=== PATIENT | male | born 1990 | race Caucasian/White ===

== ENCOUNTER 2020-07-22 21:14 | Emergency (ER) | payer OTHER, SELFPAY ==
[2020-07-22 21:26] VITALS: BP 151/100; PULSE 120; RESP 26; TEMP 36.9; O2SAT 96
[2020-07-22 22:10] VITALS: BP 144/88; PULSE 106; PULSE 107; RESP 20; O2SAT 96
[2020-07-22] MEDS: MORPHINE SULFATE (*CRX) 4 MG/ML INJ IV PUSH (22:13)
[2020-07-22] MEDS: SODIUM CHLORIDE 0.9% IV 1,000 ML 999 ML IV CONT (22:13)
[2020-07-22] MEDS: CLINDAMYCIN 600 MG/NS 50 ML 600 MG/50 ML PIGGYBACK 100 MG IVPB (22:13)
[2020-07-22] MEDS: LIDOCAINE HCL 1% LOCAL INJ 20 ML VIAL 5 ML INFILTRATE (22:13)
--- NOTE | 2020-07-22 22:23 | ED.GENADULT ---
HPI - General Adult General Chief complaint: Unspecified Stated complaint: Boils below my waist Time Seen by Provider: 07/22/20 21:28 History of Present Illness HPI narrative: Patient 29-year-old gentleman who presents the emergency department with chief complaint of suprapubic abscess. Patient reports he is a type II diabetic and noticed that he started getting some redness and swelling in his suprapubic region. Patient states that is the location of where his pants and belt rub against his abdomen. The patient states that has had multiple prior abscesses in the past that usually drain on their own patient states that he had one area that opened up and drained purulent material but now still has an area that feels extremely full and is tender to touch. Patient reports surrounding erythema. Patient denies crepitance to the area denies involvement of his genitalia. Related Data Home Medications Medication Instructions Recorded Confirmed atorvastatin 07/22/20 empagliflozin [Jardiance] mg 07/22/20 07/22/20 metformin mg PO 07/22/20 semaglutide [Ozempic] mg SUBCUT 07/22/20 sitagliptin-metformin [Janumet XR] tablet PO 07/22/20 Allergies Allergy/AdvReac Type Severity Reaction Status Date / Time No Known Allergies Allergy Verified 07/22/20 22:11 Review of Systems Review of Systems: Narrative: A 10 system review of systems was completed on the patient and is negative except for what is stated in the HPI. Nursing and ancillary documentation was reviewed. PMFSH Comments Past medical history significant for type 2 diabetes, multiple skin abscesses Social history patient is a senior mechanical technician Exam Narrative: Exam Narrative: GENERAL: Well-appearing, well-nourished, and in no acute distress. HEAD: Normocephalic, atraumatic. EYES: PERRLA and EOMI. ENT: Nares clear, no rhinorrhea or epistaxis. Mucous membranes moist. NECK: Supple. CHEST: Clear to auscultation. No respiratory distress. HEART: Regular rate and rhythm. No murmur heard. Normal peripheral pulses. ABDOMEN: Soft, nontender, nondistended, normal active bowel sounds. EXTREMITIES: Normal range of motion. No edema. SKIN: Warm, dry, there is erythema in the suprapubic region there is an area of fluctuance that is tender to palpation. NEURO: No focal deficits. Alert and oriented x3. PSYCH: Normal mood and affect. Course Vital Signs Vital signs: Vital Signs Temperature 36.9 C 07/22/20 21:26 Pulse Rate 120 H 07/22/20 21:26 Respiratory Rate 26 H 07/22/20 21:26 Blood Pressure 151/100 H 07/22/20 21:26 Pulse Oximetry 96 07/22/20 21:26 Temperature 36.9 C 07/22/20 21:26 Pulse Rate 107 H 07/22/20 22:10 Respiratory Rate 07/22/20 22:10 Blood Pressure 144/88 H 07/22/20 22:10 Pulse Oximetry 96 07/22/20 22:10 Procedures Abscess I/D abdomen: Date of Incision: 07/22/20 Time of Incision: 22:25 Local Anesthetic: lidocaine 1% Amount of anesthesia used (mL): 8 Technique: incised with #11 blade Amount of fluid expressed (mL): 15 Packing used?: plain I&D Results: Pus and Blood Medical Decision Making Vital Signs Vital Signs: Vital Signs Temperature 36.9 C 07/22/20 21:26 Pulse Rate 120 H 07/22/20 21:26 Respiratory Rate 26 H 07/22/20 21:26 Blood Pressure 151/100 H 07/22/20 21:26 Pulse Oximetry 96 07/22/20 21:26 Temperature 36.9 C 07/22/20 21:26 Pulse Rate 107 H 07/22/20 22:10 Respiratory Rate 07/22/20 22:10 Blood Pressure 144/88 H 07/22/20 22:10 Pulse Oximetry 96 07/22/20 22:10 Lab Data Result diagrams: 07/22/20 22:25 07/22/20 22:25 Labs: Lab Results 07/22/20 07/22/20 07/22/20 Range/Units 22:25 22:25 22:25 WBC 8.7 (4.5-10.0) K/mm3 RBC 4.92 (4.6-6.20) M/mm3 Hgb 14.4 (14.0-18.0) g/dL Hct 41.2 L (42.0-52.0) % MCV 83.7 (80-100) fl MCH 29.3 (26-34) pg MCHC 35.0 (32-36) g/dl RDW
[2020-07-22 22:35] LABS: Basophils Percent Auto 0.2 % (0.2-1.2); Eosinophils Absolute Auto 0.1 K/mm3 (0-0.3); Eosinophils Percent Auto 1.5 % (0-4.4); Hematocrit 41.2 % (42.0-52.0); Hemoglobin 14.4 g/dL (14.0-18.0); Immature Granulocyte Absolute 0.04 K/mm3 (0.00-0.031); Immature Granulocyte Percent A 0.5 % (0-0.5); Lymphocytes Absolute Auto 1.66 K/mm3 (0.9-3.2); Mean Corpuscular Hemoglobin 29.3 pg (26-34); Mean Corpuscular Volume 83.7 fl (80-100); Mean Platelet Volume 8.8 fl (7.4-10.4); Monocytes Percent Auto 11.5 % (2.6-8.5); Neutrophils Absolute Auto 5.9 K/mm3 (1.3-6.7); Neutrophils Percent Auto 67.3 % (45.5-73.1); Platelet Count Result 325 k/mm3 (150-375); Red Blood Count 4.92 M/mm3 (4.6-6.20); Red Cell Distribution Width 12.5 % (11.5-14.5); White Blood Count 8.7 K/mm3 (4.5-10.0)
[2020-07-22 22:47] LABS: Alanine Aminotransferase 32 U/L (4-50); Albumin Level 3.9 g/dL (3.5-5.1); Alkaline Phosphatase 92 U/L (38-126); Anion Gap 11 mmol/L (8-16); Aspartate Amino Transferase 28 U/L (17-59); Bilirubin,Total 0.8 mg/dL (0.2-1.3); Blood Urea Nitrogen 14 mg/dL (9-20); Calcium 8.9 mg/dL (8.4-10.2); Carbon Dioxide 22 mmol/L (22-30); Chloride 102 mmol/L (98-107); Estimated CRCL calculation 187 ml/min; Estimated Glomerular Filt Rate > 60; Glucose 371 mg/dL (75-110); Potassium 3.8 mmol/L (3.4-5.0); Sodium 135 mmol/L (137-145)
[2020-07-22 23:40] VITALS: BP 129/80; PULSE 104; RESP 13; O2SAT 96
== END 2020-07-22 23:40 | disposition home or self-care (01) ==
PROVIDERS: Emergency Provider Emergency Medicine; Family Provider Internal Medicine; PCP Internal Medicine
DX: L02.211 Cutaneous abscess of abdominal wall (principal); E11.65 Type 2 diabetes mellitus with hyperglycemia; Z79.84 Long term (current) use of oral hypoglycemic drugs
CPT/HCPCS: 10060; 36415; 80053; 83605; 85025; 87040; 96374; 96375; 99284; J2270; J7030

== ENCOUNTER 2024-08-10 07:00 | Emergency (ER) | payer OTHER, SELFPAY ==
--- NOTE | ~2024-08-10 | XR_ITS ---
AP view of the pelvis and AP and lateral views of the left hip Clinical history: Pain Findings: No acute fracture or dislocation is seen. Osseous alignment is anatomic. Bilateral hip and SI joint spaces are preserved. Soft tissues are unremarkable. Impression: No significant abnormality is seen. Reviewed, dictated and finalized at [facility]. DEVELOPER Impression: No significant abnormality is seen.
--- OUTSIDE RECORDS SUMMARY | 2024-08-10 07:02 | XMS_ITS | Clinical Summary ---
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 at [address] [id number] Pain 07/10/2024 2:45 PM APPLIANCE COUNSELOR Ancillary Procedure [facility] at [address] [id number] Pain from Last 3 Months Social History Tobacco Use Types Packs/Day Years Used Date Smoking Tobacco: Never Sex and Gender Information Value Date Recorded Sex Assigned at Not on file Legal Sex Male 3:50 AM APPLIANCE COUNSELOR Gender Identity Not on file Sexual Orientation Not on file Obstetrics History Plan of Treatment Health Maintenance Due Date Last Done Comments Depression Screening 1988 Hepatitis C Screening 1988 DTaP/Tdap/Td Vaccine (1 - Tdap) 11/26/1999 Varicella Vaccines (1 of 2 - 13+ 2-dose series) 2001 Hepatitis B Screening 2006 Regular Well Visit/Exam 18-64 2006 Covid-19 Vaccine (2 - 2023-2 5 season) 2024 07/09/2021 Influenza Vaccine (#1) 2024 HPV Vaccines Aged Out No longer eligi ble based on patient's age to complete this topic Pneumococcal vaccine <65 Aged Out No longer eligible based on patient's age to complete this topic Procedures Procedure Name Priority Date/Time Associated Diagnosis Comments XR SPINE CERVICAL 6 OR MORE VIEWS Schedule Routine, Read Routine (OP Routine) 07/10/2024 2:29 PM APPLIANCE COUNSELOR Pain XR HAND RIGHT 3 OR MORE VIEWS Schedule Routine, Read Routine (OP Routine) 07/10/2024 2:29 PM APPLIANCE COUNSELOR Pain from Last 3 Months Results * XR Spine Cervical 6 or More Views (07/10/2024 2:29 PM APPLIANCE COUNSELOR) Anatomical Region Laterality Modality Spine N/A Digital Radiogra phy 07/11/2024 1:07 PM APPLIANCE COUNSELOR Narrative 07/11/2024 1:13 PM APPLIANCE COUNSELOR EXAM DESCRIPTION: XR SPINE CERVICAL 6 OR MORE VIEWS REASON FOR STUDY: neck pain Pt complains of numbness in both arms, mostly at night, intermittently for about a year. No known injury. No prior surgery to the cervical spine. Smashed hand last weekend, pain to the 2nd digit TECHNIQUE: 7 radiographic view(s) of the cervical spine. COMPARISON: None FINDINGS: ALIGNMENT: There is straightening of the cervical lordosis in the lateral projection. There is no evidence of instability in flexion or extension. VERTEBRAE: Vertebral body heights are maintained. Facets are normally aligned. There is no significant osseous neural foraminal narrowing on the right. There is some narrowing at C5-6 on the left. This can be further evaluated with MRI. DISCS: Disc height well-maintained. SOFT TISSUES: Prevertebral soft tissue structures are within normal limits. IMPRESSION: 1. No acute osseous abnormality in the cervical spine. There is some straightening of the cervical lordosis in the lateral projection. 2. Osseous neural foraminal narrowing at C 5-6 on the left. MRI can be utilized for further evaluation. THIS IS AN ELECTRONICALLY VERIFIED FINAL REPORT 07/11/2024 1:13 PM - Electronically signed by Luh Stevens M.D. TW T: Report ID: [id number] Reading Location: [id number] Procedure Note Luh Stevens MD - 07/11/2024 EXAM DESCRIPTION: XR SPINE CERVICAL 6 OR MORE VIEWS REASON FOR STUDY: neck pain Pt complains of numbness in both arms, mostly at night, intermittently for about a year. No known injury. No prior surgery to the cervical spine.Smashed hand last weekend, pain to the 2nd digit TECHNIQUE: 7 radiographic view(s) of the cervical spine. COMPARISON: None FINDINGS: ALIGNMENT: There is straightening of the cervical lordosis inthe lateral projection. There is no evidence of instability in flexion or extension. VERTEBRAE: Vertebral body heights are maintained. Facets are normally aligned. There is no significant osseous neural foraminal narrowing onthe right. There is some narrowing at C5-6 on the left. This can be further evaluated with MRI. DISCS: Disc height well-maintained. SOFT TISSUES: Prevertebral soft tissue structures are within normallimits. IMPRESSION: 1. No acute osseous abnormality in the cervical spine. There is some straightening of the cervical lordosis in the lateral projection. 2. Osseous neural foraminal narrowing at C 5-6 on the left. MRI can be utilized for further evaluation. THIS IS AN ELECTRONICALLY VERIFIED FINAL REPORT 07/11/2024 1:13 PM - Electronically signed by Luh Stevens M.D. TW T: Report ID: [id number] Reading Location: [id number] [facility] DC IMG XR PROCEDURES Final Result * XR Hand Right 3 or More Views (07/10/2024 2:29 PM APPLIANCE COUNSELOR) Anatomical Region Laterality Modality Upper Extremities, Hand Right Digital Radiography 07/12/2024 8:41 AM APPLIANCE COUNSELOR Narrative 07/12/2024 8:59 AM APPLIANCE COUNSELOR EXAM DESCRIPTION: XR HAND RIGHT 3 OR MORE VIEWS REASON FOR STUDY: pain Pt complains of numbness in both arms, mostly at night, intermittently for about a year. No known injury. No prior surgery to the cervical spine. Smashed hand last weekend, pain to the 2nd digit TECHNIQUE: 3 radiographic view(s) of the right hand . COMPARISON: None FINDINGS: BONES/JOINTS: There is no acute fracture, malalignment or osseous abnormality. The joint spaces are normal. SOFT TISSUES: Within normal limits. IMPRESSION: No acute osseous abnormality. THIS IS AN ELECTRONICALLY VERIFIED FINAL REPORT 07/12/2024 8:59 AM - Electronically signed by John Paul DAVIS T: Report ID: [id number] Reading Location: [id number] Procedure Note John Paul Art MD - 07/12/2024 EXAM DESCRIPTION: XR HAND RIGHT 3 OR MORE VIEWS REASON FOR STUDY: pain Pt complains of numbness in both arms, mostly at night, intermittently for about a year. No known injury. No prior surgery to the cervical spine.Smashed hand last weekend, pain to the 2nd digit TECHNIQUE: 3 radiographic view(s) of the right hand . COMPARISON: None FINDINGS: BONES/JOINTS: There is no acute fracture, malalignment orosseous abnormality. The joint spaces are normal. SOFT TISSUES: Within normal limits. IMPRESSION: No acute osseous abnormality. THIS IS AN ELECTRONICALLY VERIFIED FINAL REPORT 07/12/2024 8:59 AM - Electronically signed by John Paul DAVIS T: Report ID: [id number] Reading Location: [place] [address] [facility] Kendall [facility] IMG XR PROCEDURES Final Result from Last 3 Months [facility] [place] [facility] Care Teams Specialty Therapist Relationship Specialty Start Date End Date Tania Hale MD PCP - General Internal Medicine 11/23/18
--- OUTSIDE RECORDS SUMMARY | 2024-08-10 07:02 | XMS_ITS | Continuity of Care Document ---
Author Organization [facility] [facility] [place] Address [address] [place] [address] Phone Care Team Providers Care Lab Engineer Name Role Phone Cipriano Black MD Unavailable Unavailable Allergies, Adverse Reactions, Alerts Substance Reaction Status Criticality No Known Drug Allergies Active No I nformation Medications Medication Instructions Dosage Effective Dates (start - stop) Status Comments pantoprazole 40 mg tablet,delayed release Take 1 tablet by mouth once daily - Active atorvastatin 40 mg tablet Take 1 tablet by mouth once daily - Active Basaglar KwikPen U-100 Insulin 100 unit/mL (3 mL) subcutaneous inject 26u under the skin once daily before bedtime - Active metFORMIN HCl ER 500 MG Oral Tablet Extended Release 24 Hour TAKE 2 TABLETS BY MOUTH ONCE DAILY WITH EVENING MEAL - Active Jardiance 25 mg tablet TAKE 1 TABLET BY MOUTH ONCE DAILY IN THE MORNING - Active potassium gluconate 550 mg (90 mg) tablet 1 tablet daily - Active Fenofibrate 145 MG Oral Tablet Take 1 tablet by mouth once daily - Active BD PEN NEEDLE/YUNIOR [id number] MIS USE TO INJECT INSULIN DIRECTED - Active Cinnamon 500 mg capsule take 2 capsules by mouth once daily - Active Procedures Procedure Date Pt inelig neg scrn depres OFFICE [id number] BODY MASS INDEX DOCD SYST BP LT 130 MM HG DIAST BP >= 90 MM HG ROUTINE VENIPUNCTURE [place] BASIC METABOLIC PANEL(BMP) HEMOGLOBIN A1C HGA1C, GLYCO Pt inelig neg scrn depres PREVENTATIVE-EST: 18-39 BODY MASS INDEX DOCD SYST BP GE 130 - 139MM HG DIAST BP 80-89 MM HG CBC, INC PLATELETS AND DIFFERENTIAL COMPREHEN METABOLIC PANEL CMP HEMOGLOBIN A1C HGA1C, GLYCO LIPID PANEL MICROALBUMIN, QN (URINE) CREATININE, (U-R) ROUTINE VENIPUNCTURE IL Pt inelig neg scrn depres OFFICE [id number] BODY MASS INDEX DOCD SYST BP GE 130 - 139MM HG DIAST BP 80-89 MM HG ROUTINE VENIPUNCTURE IL HEMOGLOBIN A1C HGA1C, GLYCO TRIGLYCERIDES CBC, INC PLATELETS AND DIFFERENTIAL COMPREHEN METABOLIC PANEL CMP HEMOGLOBIN A1C HGA1C, GLYCO LIPID PANEL MICROALBUMIN, QN (URINE) CREATININE, (U-R) LDL-CHOLESTEROL, DIRECT Pt inelig neg scrn depres PREVENTATIVE-EST: -39 BODY MASS INDEX DOCD SYST BP LT 130 MM HG DIAST BP 80-89 MM HG ROUTINE VENIPUNCTURE [place] BASIC METABOLIC PANEL(BMP) HEMOGLOBIN A1C HGA1C, GLYCO Pt inelig neg scrn depres OFFICE [id number] BODY MASS INDEX DOCD SYST BP >= 140 MM HG6 IT DIAST BP 80-89 MM HG ROUTINE VENIPUNCTURE WA Pt inelig neg scrn depres PREVENTATIVE-EST: 18-39 BODY MASS INDEX DOCD SYST BP LT 130 MM HG DIAST BP < 80 MM HG CBC, INC PLATELETS AND DIFFERENTIAL COMPREHEN METABOLIC PANEL CMP HEMOGLOBIN A1C HGA1C, GLYCO LIPID PANEL MICROALBUMIN, QN (URINE) CREATININE, (U-R) ROUTINE VENIPUNCTURE Pt inelig neg scrn depres OFFICE [id number] BODY MASS INDEX DOCD SYST BP LT 130 MM HG DIAST BP < 80 MM HG COMPREHEN METABOLIC PANEL [facility] 2 HEMOGLOBIN A1C HGA1C, GLYCO MICROALBUMIN, QN (URINE) CREATININE, (U-R) ROUTINE VENIPUNCTURE Pt inelig neg scrn deprjackson PREVENTATIVE-EST: 18-39 BODY MASS INDEX DOCD SYST BP GE 130 - 139MM HG DIAST BP 80-89 MM HG CBC, INC PLATELETS AND DIFFERENTIAL COMPREHEN METABOLIC PANEL [facility] 1 HEMOGLOBIN A1C HGA1C, GLYCO LIPID PANEL ROUTINE VENIPUNCTURE OFFICE [id number] BODY MASS INDEX DOCD SYST BP >= 140 MM HG6 IT DIAST BP 80-89 MM HG Pt inelig neg scrn depres OFFICE [id number] BODY MASS INDEX DOCD SYST BP GE 130 - 139MM HG DIAST BP 80-89 MM HG BASIC METABOLIC PANEL(BMP) HEMOGLOBIN A1C HGA1C, GLYCO ROUTINE VENIPUNCTURE Pt inelig neg scrn depres PREVENTATIVE-EST: 18-39 BODY MASS INDEX DOCD SYST BP GE 130 - 139MM HG DIAST BP < 80 MM HG MICROALBUMIN, QN (URINE) CREATININE, (U-R) CBC, INC PLATELETS AND DIFFERENTIAL COMPREHEN METABOLIC PANEL CMP HEMOGLOBIN A1C HGA1C, GLYCO LIPID PANEL ROUTINE VENIPUNCTURE Pt inelig neg manolon depres OFFICE [id number] BODY MASS INDEX DOCD SYST BP GE 130 - 139MM HG DIAST BP < 80 MM HG BASIC METABOLIC PANEL(BMP) HEMOGLOBIN A1C HGA1C, GLYCO ROUTINE VENIPUNCTURE OFFICE [id number] Pt inelig neg manolon depres PREVENTATIVE-EST: 18-39 BODY MASS INDEX DOCD SYST BP LT 130 MM HG DIAST BP 80-89 MM HG CBC, INC PLATELETS AND DIFFERENTIAL COMPREHEN METABOLIC PANEL CMP 9 HEMOGLOBIN A1C HGA1C, GLYCO LIPID PANEL MICROALBUMIN, QN (URINE) CREATININE, (U-R) ROUTINE VENIPUNCTURE HEMOGLOBIN A1C HGA1C, GLYCO ROUTINE VENIPUNCTURE BASIC METABOLIC PANEL(BMP) HEMOGLOBIN A1C HGA1C, GLYCO ROUTINE VENIPUNCTURE BASIC METABOLIC PANEL(BMP) HEMOGLOBIN A1C HGA1C, GLYCO ROUTINE VENIPUNCTURE OFFICE [id number] BODY MASS INDEX DOCD SYST BP GE 130 - 139MM HG DIAST BP >= 90 MM HG BASIC METABOLIC PANEL(BMP) HEMOGLOBIN A1C HGA1C, GLYCO ROUTINE VENIPUNCTURE Advance Directives Directive Yes / No Effective Date File Name Life Support Not Answered N/A N/A Intubation Not Answered N/A N/A Antibiotics Not Answered N/A N/A IV Fluid Support Not Answered N/A N/A Tube Feed Not Answered N/A N/A Other Directive N/A N/A WARNING:The information contained in this section is historical and is provided for information only and does not constitute a legal document or any assurance that the information is still accurate. Please verify the information with the park of the legal document before using it for clinical purposes. Encounters Encounter Description Practice Location Reason(s) For Visit Diagnoses Date Provider Providers Copied on Encounter [facility] [place], [address], [place], [place], [address] , tel: [phone] [facility] No Information 5 English Cota. Mis[place], [address] , [place]. tel: [phone] [facility] [place], [address], [place], [place], [address] , [place] tel: [phone] [facility] [place] No Information 5 English Cota. [address] [place], [address] , [place]. tel: [phone] [facility] [place], [address], [place], [place], [address] , [place] tel: [phone] [facility] [place] No Information 5 English Cota. [address] [place], [place], [address] , [place]. tel: [phone] OFFICE [id number]-ZXS-LT TAILED [facility] [place], [address], [place], [place], [address] , tel: [phone] [facility] preventive exam (chief complaint)ch ronic conditions (chief complaint)Ch ronic Conditions (chief complaint) Routine medical examGERD without esophagitisType 2 diabetes mellitus with hyperglycemia, with long-term current use of insulinHyperlipid emia, unspecified hyperlipidemia typeBody mass index [BMI] 38.0-38.9, adult 4 Bains Steffanie. [address], [address] , [place]. tel: [phone] Referring Provider: [place], [address] . tel:[phone] [facility], [address], [place], [place], [address] , [place] tel: [phone] [facility] HTN, goal below 130/80Controlled type 2 diabetes mellitus with hyperglycemia, with long-term current use of insulinLong term (current) use of insulin 4 English Cota. Mishel [place], [address] , [place]. tel: [phone] Referring Provider: [place], [address] . tel:[phone] [facility], [address], [place], [place], [address] , tel: [phone] [facility] [place] [facility] No Information 4 Whit Elizabeth. [address], [address] , [place]. tel: [phone] Referring Provider: [place], [address] . tel:[phone] [facility], [address], [place], [place], [address] , [place] tel: [phone] [facility] No Information 4 English Cota. Mishel [place], [address] , [place]. tel:[phone] PREVENTATIVE -EST: 18-39 [facility], [address], [place], [place], [address] , tel: [phone] [facility] Px (chief complaint) Body mass index [BMI] 37.0-37.9, adultRoutine medical examType 2 diabetes mellitus with hyperglycemia, with long-term current use of insulinGERD without esophagitis 4 English Cota. [address] [place], [address] , [place]. tel: [phone] Referring Provider: Cipriano Black, [place], [address] . tel:[phone] [facility], [address], [place], [place], [address] , tel: [phone] [facility] [place] [facility] No Information 4 Whit Elizabeth. [address] [place] [address], [address] , [place]. tel: [phone] Referring Provider: [place], [address] . tel:[phone] [facility], [address], [place], [place], [address] , [place] tel: [phone] [facility] Routine medical examType 2 diabetes mellitus with hyperglycemia, with long-term current use of insulinLong term (current) use of insulinMixed hyperlipidemiaHTN , goal below 130/80 4 English Cota. Mishel [place], [address] , [place]. tel:[phone] Referring Provider: [place], [address] . tel:[phone] [facility], [address], [place], [place], [address] , tel: [phone] [facility] No Information 4 English Cota. Mishel [place], [address] , [place]. tel: [phone] OFFICE [id number]-UPV-PM PANDED [facility], [address], [place], [place], [address] , tel: [phone] [facility] chroniuc conditions (chief complaint) GERD without esophagitisType 2 diabetes mellitus with hyperglycemia, with long-term current use of insulinBody mass index [BMI] 37.0-37.9, adult 3 English Cota. [address] [place], [place], [address] , [place]. tel: [phone] Referring Provider: Cipriano Black, [place], [address] . tel:[phone] [facility] [place], [address], [place], [place], [address] , tel: [phone] [facility] Type 2 diabetes mellitus with hyperglycemia, with long-term current use of insulinLong term (current) use of insulinMixed hyperlipidemia 3 English Cota. [address] [place], [place], [address] , [place]. tel: [phone] Referring Provider: [place], [address] . tel:[phone] [employer], [address], [place], [place], [address] , tel: [phone] [employer] [facility] Outpatient Services No Information 3 Whit Serrano [address] [place] [address], [id number] , [place]. tel: [phone] Referring Provider: [place], [address] . tel:[phone] [employer], [address], [place], [place], [address] , tel: [phone] [employer] [facility] Encounter for general adult medical examination without abnormal findings 3 Whit Serrano [address], [address] , [place]. tel:[phone] Referring Provider: Cipriano Black, [place], [address] . tel:[phone] PREVENTATIVE -EST: 18-39 [facility] [place], [address], [place], [place], [address] , tel:[phone] [facility] px (chief complaint) Routine health maintenanceType 2 diabetes mellitus with hyperglycemia, with long-term current use of insulinGERD without esophagitisHTN, goal below 130/80Body mass index [BMI] 36.0-36.9, adult Sep-2 3 English Cota. [address] [place], [place], [address] , [place]. tel:[phone] Referring Provider: Cipriano Black, [place], [address] . tel:[phone] [facility], [address], [place], [place], [address] , [place] tel:[phone] [facility] No Information Nov-2 3 Spenser Campbell. [address] [place], [place], [address] , [place]. [phone] [facility], [address], [place], [place], [address] , [place] tel:[phone] [facility] [place] [facility] No Information Aug-0 3 Whitdean Gonsalezn. [address] [facility], [address] [address], [place], [place], [address] , [place]. tel:[phone] Referring Provider: Cipriano Black, [place], [address] . tel:[phone] OFFICE SGQCF-JHN-PG PANDED [facility], [address], [place], [place], [address] , [place] tel:[phone] [facility] diabetes (chief complaint) Body mass index [BMI] 39.0-39.9, adultType 2 diabetes mellitus with hyperglycemia, with long-term current use of insulin Aug-0 3 English Cota. [address] [place], [place], [address] , . tel:[phone] Referring Provider: [place], [address] . tel:[phone] PREVENTATIVE -EST: 18-39 [facility], [address], [place], [place], [address] , tel: [phone] [place] preventive exam (chief complaint)Ch ronic Conditions (chief complaint) Type 2 diabetes mellitus with hyperglycemia, with long-term current use of insulinMixed hyperlipidemiaGER D without esophagitisLong term (current) use of insulinHTN, goal below 130/80Morbid (severe) obesity due to excess caloriesRoutine health maintenanceBody mass index [BMI] 37.0-37.9, adult Apr- 2 Bains Steffanie. [address], [place], [address] , . tel: [phone] Referring Provider: [place], [address] . tel:[phone] OFFICE KEUAN-SKW-QG TAILED [facility], [address], [place], [place], [address] , tel: [phone] [place] Chronic Conditions (chief complaint) Type 2 diabetes mellitus with hyperglycemia, with long-term current use of insulinGERD without esophagitisLong term (current) use of insulinMixed hyperlipidemiaHTN , goal below 130/80Body mass index [BMI] 37.0-37.9, adultElevated liver enzymesEye exam, routine 2 Herson Valiente. [address] [place], [place], [address] , [place]. tel: [phone] Referring Provider: [place], [address] . tel:[phone] [facility], [address], [place], [place], [address] , tel: [phone] [place] No Information 2 English Cota. [address] [place] [address], [address] , [place]. tel: [phone] PREVENTATIVE -EST: -39 [facility], [address], [place], [place], [address] , tel: [phone] Jessica Px (chief complaint) Body mass index [BMI] 39.0-39.9, [facility] health maintenanceType 2 diabetes mellitus with hyperglycemia, with long-term current use of insulinMorbid (severe) obesity due to excess caloriesGERD without esophagitis 1 English Cota. Mishel [place], [address] , [place]. tel: [phone] Referring Provider: [place], [address] . tel:[phone] OFFICE LDEXL-HPP-NS PANDED [facility], [address], [place], [place], [address] , tel: [phone] Jsesica indigestion and vomiting (chief complaint) GERD without esophagitis 1 English John. Florentino [place], [address] , [place]. tel:[phone] Referring Provider: [place], [address] . tel:[phone] OFFICE BBSIU-TPK-XH TAILED [facility], [address], [place], [place], [address] , tel: [phone] Jessica chronic conditions (chief complaint) Type 2 diabetes mellitus with hyperglycemia, with long-term current use of insulinLong term (current) use of insulinMorbid (severe) obesity due to excess caloriesBody mass index (BMI) 40.0-44.9, adult Nov- 1 English John. Florentino [place], [address] , [place]. tel:[phone] Referring Provider: [place], [address] . tel:[phone] PREVENTATIVE -EST: 1839 [facility], [address], [place], [place], [address] , tel: [phone] Jessica preventive exam (chief complaint)Ch ronic Conditions (chief complaint) Routine health maintenanceType 2 diabetes mellitus without complication, without long-term current use of insulinHTN, goal below 130/80Mixed hyperlipidemiaBod y mass index (BMI) 38.0-38.9, adult Mar-0 1 Bains Steffanie. [address] [place], [place], [address] , . tel:[phone] Referring Provider: [place], [address] . tel:[phone] [employer], [address], [place], [place], [address] , tel: [phone] [place] Type 2 diabetes mellitus without complication, without long-term current use of insulinHypertrigl yceridemiaElevate d blood pressure readingAdult general medical exam 1 English Cota. Mishel [place], [place], [address] , . tel: [phone] Referring Provider: [place], [address] . tel:[phone] [employer] [facility], [address], [place], [place], [address] , tel: [phone] Jessica F/u diabetes (chief complaint) Type 2 diabetes mellitus without complication, without long-term current use of insulin 0 Herson Valiente. [address] [place], [address] , [place]. tel: [phone] OFFICE UCNDD-VMR-QP TAILED [facility], [address], [place], [place], [address] , tel: [phone] [place] f/u chronic conditions (chief complaint) Type 2 diabetes mellitus without complication, without long-term current use of insulinHTN, goal below 130/80 Feb- 0 Bains Steffanie. [address] [place], [place], [address] , [place]. tel:[phone] Referring Provider: [place], [address] . tel:[phone] [facility], [address], [place], [place], [address] , tel: [phone] Jessica Type 2 diabetes mellitus without complication, without long-term current use of insulinEncounter for long-term (current) use of other medications 0 English Cota. Mishel [place], [address] , . tel: [phone] Referring Provider: [place], [address] . tel:[phone] OFFICE JAUTJ-OHI-XO TAILED [facility], [address], [place], [place], [address] , tel: [phone] Jessica Telehealth (chief complaint)4 month office visit (chief complaint) Body mass index (BMI) 39.0-39.9, adultType 2 diabetes mellitus without complication, without long-term current use of insulinHTN, goal below 130/80 0 English Cota. Mishel [place], [place], [address] , . tel: [phone] Referring Provider: [place], [address] . tel:[phone] PREVENTATIVE -EST: 18-39 [facility], [address], [place], [place], [address] , tel: [phone] Jessica physical (chief complaint) Routine health maintenanceType 2 diabetes mellitus without complication, without long-term current use of insulinHTN, goal below 130/80Body mass index (BMI) 40.0-44.9, adultMorbid (severe) obesity due to excess calories 9 Herson Valiente. [address] [place], [place], [address] , . tel:[phone] Referring Provider: [place], [address] . tel:[phone] [facility], [address], [place], [place], [address] , tel: [phone] Jessica Type 2 diabetes mellitus without complication, without long-term current use of insulin Oct-1 9 English oCta. Mishel [place], [address] , [place]. tel: [phone] Referring Provider: [place], [address] . tel:[phone] [employer] [place], [address], [place], [place], [address] , tel: [phone] Jessica Type 2 diabetes mellitus without complication, without long-term current use of insulin Sep-0 9 English Cota. Mishel [place], [place], [address] , [place]. tel: [phone] Referring Provider: [place], [address] . tel:[phone] [facility], [address], [place], [place], [address] , tel: [phone] Jessica Type 2 diabetes mellitus without complication, without long-term current use of insulin Dec-3 9 English Cota. Mishel [place], [address] , [place]. tel: [phone] Referring Provider: [place], [address] . tel:[phone] OFFICE GICHC-IQC-AD [facility], [address], [place], [place], [address] , tel: [phone] [place] ER f/u increased BS (chief complaint) Body mass index (BMI) 37.0-37.9, adultType 2 diabetes mellitus with hyperglycemia, without long-term current use of insulinHTN, goal below 130/80 Narinder-2 9 English Cota. Mishel [place], [place], [address] , [place]. tel: [phone] Referring Provider: [place], [address] . tel:[phone] [facility], [address], [place], [place], [address] , tel: [phone] [place] Type 2 diabetes mellitus without complication, without long-term current use of insulin English Cota. Mishel [place], [address] , . tel: [phone] Referring Provider: [place], [address] . tel:[phone] [facility], [address], [place], [place], [address] , tel: [phone] [place] Type 2 diabetes mellitus without complication, without long-term current use of insulinMorbid obesityHTN, goal below 130/80Right arm numbness English Cota. Mishel [place], [address] , . tel: [phone] Referring Provider: [place], [address] . tel:[phone] [facility], [address], [place], [place], [address] , tel: [phone] [place] Routine health maintenanceType 2 diabetes mellitus without complication, without long-term current use of insulinElevated blood pressureMorbid obesityBody mass index (BMI) 40.0-44.9, adult Sep- English Cota. Mishel [place], [address] , . tel: [phone] Referring Provider: [place], [address] . tel:[phone] [facility], [address], [place], [place], [address] , tel: [phone] [place] Type 2 diabetes mellitus without complication, without long-term current use of insulinHypertrigl yceridemiaEncount er for long-term (current) use of other medications English Cota. Mishel [place], [address] , . tel: [phone] Referring Provider: [place], [address] . tel:[phone] [facility], [address], [place], [place], [address] , tel: [phone] Jessica Type 2 diabetes mellitus without complication, without long-term current use of insulinHypertrigl yceridemiaElevate d blood pressure 7 Geoffrey Marin. [address] [place] [address], [facility], . tel: [phone] Referring Provider: Tania Hale, [address] [place] [address], [facility]. tel:[phone] [facility], [address], [place], [place], [address] , tel: [phone] Jessica Routine health maintenanceType 2 diabetes mellitus without complication, without long-term current use of insulinElevated blood pressureHypertrig lyceridemia 6 Geoffrey Tania. [address] [place] [address], [facility], . tel: [phone] [facility], [address], [place], [place], [address] , tel: [phone] Jessica Diabetes type 2, uncontrolledEleva mariana blood pressureObesity (BMI 30-39.9)Hypertrig lyceridemia 5 Congerclare Marin. [address] [place] [address], [facility], . tel: [phone] Referring Provider: Tania Hale, [address] [place] [address], [facility]. tel:[phone] [facility], [address], [place], [place], [address] , tel: [phone] Jessica No Information 5 Geoffreyclare Marin. [address] [place] [address], [facility], . tel: [phone] [facility], [address], [place], [place], [address] , tel: [phone] [place] PolydipsiaFatigue BoilObeseHypergly cemia 5 Geoffrey Marin. [address], [address], [place]. tel:[phone] Referring Provider: Tania Camejoille, [address] [address], [place], [address]. tel:[phone] Family History Family Member Type Diagnosis Age At Onset Close relative Problem (finding) diabetes mellitus typ e 2 Father Problem (finding) hypertension Immunizations Vaccine Date Status Comments Tdap refused Source: New Imm unization Record Fluzone Quad, preservative free, split virus, 0.5mL dosage refused Source: New Immuniza tion Record J&J COVID/Adenovirus Vaccine [id number] viral particles/0.5mL administered Note: [facility] ; Source: Public Agency Fluzone Quad, preservative free, split virus, 0.5mL dosage refused Source: New Immuniza tion Record Fluzone Quad, preservative free, split virus, 0.5mL dosage refused Source: New Immuniza tion Record Tdap administered Source: Other P rovider influenza, injectable, quadrivalent, (3 years or older) administered Source: Other Provid er Payers Payer name Insurance type Covered libertarian ID Authoriza tion(s) [employer] PPO CI [id number] [employer] PPO CI [id number] [employer] PPO CI [id number] [employer] OPEN ACCESS CI [id number] [employer] OPEN ACCESS CI [id number] Social History Type Description Quantity Date Captured Comments Alcohol Use Details Unknown Caffeine Use Details Unknown Tobacco Use Status Smoking Status No Information Sex Male Chief Complaint And Reason For Visit No Information Reason For Referral Reason For Referral No Information Plan Of Treatment Date Type Action Status Goal Dietary manageme nt education, guidance, and counseling completed Goal Dietary manageme nt education, guidance, and counseling completed Goal Dietary manageme nt education, guidance, and counseling completed Goal Dietary manageme nt education, guidance, and counseling completed Goal Dietary manageme nt education, guidance, and counseling completed Goal Dietary manageme nt education, guidance, and counseling completed Goal Dietary manageme nt education, guidance, and counseling completed Goal Dietary manageme nt education, guidance, and counseling completed Goal Dietary manageme nt education, guidance, and counseling completed Goal Dietary manageme nt education, guidance, and counseling completed Goal Dietary manageme nt education, guidance, and counseling completed Goal Dietary manageme nt education, guidance, and counseling completed Referral Ordered: Shekhar Powell -Endocrinology, Diabetes and Metabolism (related to Type 2 diabetes mellitus with hyperglycemia, with long-term current use of insulin) ordered Referral Referred To: Shekhar Powell Ordered: Referrals: Endocrinology, Diabetes and Metabolism. Shekhar Powell. Evaluation/diagnostic/treatment - Level 3 ordered Referral Ordered: Fabian Johnston MD -Ophthalmology (related to Eye exam, routine) ordered Referral Referred To: Fabian Johnston MD [address] [place], [address] [phone] Ordered: Referrals: Ophthalmology. Fabian Johnston MD. Evaluation/diagnostic/treatment - Level 3 ordered Referral Referred To: Dr. Hernandez Ordered: Referrals: Ophthalmology. Dr. Hernandez. Evaluation/diagnostic/treatment - Level 3 Appointment date/timeframe: 06/26/2019 ordered Appointment Demario Slade BOOKED Appointment Demario Slade BOOKED Appointment Demario Slade BOOKED Future Order: Lab Order CBC AUTO DIFF ([id number]), Collected on: , Sent on: Sent Future Order: Lab Order Hemoglob in A1c ([id number]), Collected on: , Sent on: Sent Future Order: Lab Order Comprehe nsive Metabolic (CMP) ([id number]), Collected on: , Sent on: Sent Future Order: Lab Order Lipid Pa nidia W/Reflex To Direct LDL ([id number]), Collected on: , Sent on: Sent History Of Present Illness Encounter Date Complaint History Of Prese nt Illness preventive exam Men's preventive visit. Patient is on a okay diet. Marital status: Single. Concern(s)/Requests Detail: No screenings neededCOVID - DUE FOR BOOSTERFlu - DUE NOWTdap - DUE NOW. Relevant history is negative for alcohol use. Chronic Conditions *See Chronic Conditions HPI chronic conditions *See Chronic Conditions HPI Px Chronic conditio nsdm-- still too highdiet-- eating lessexercise-- active jobimmunizations-- recommended tdapscreenings-- utdmood-- oksleep chroniuc conditions dm-- is bett ergerd-- controlled on med px Chronic conditio nsdm-- off ozempic bc of side effects-- too highhtn-- doing ok on medgerd-- controlled on medsdiet---not the bestexercise-- active jobimmunizations-- recommendedscreenings--utdmood-- finesleep------better diabetes Risk factors inc lude: obesity. Patient is compliant with using medication, follow-up, and using education materials. Managing with: Oral medications and Insulin. Home glucose readings: Min 140, Max 156 preventive exam Men's preventive visit. Patient is on a okay diet. Marital status: Single. Concern(s)/Requests Detail: No screenings needed. No FH of colon cancer and prostate cancerCOVID - had J&J - needs new boosterFlu - refuses. Relevant history is negative for alcohol use. The patient is a former tobacco user. Chronic Conditions *See Chronic Conditions HPI Chronic Conditions *See Chronic Conditions HPI Px chronic conditio nsdm-- bs was 150 this am, needs eye exam, lost a few poundsgerd-- controlled on meddiet------sosoexercise-- very activescreening--utdimmunizations-- needs covid vaccinemood---ok indigestion and vomiting depende nt on foodstomach feels zia gets burpsvomit or diarrheatries to remember what he eats chronic conditions dm with hyper glycemia on insulin, bs running betterobesity-- weigth is down a bit preventive exam Men's preventive visit. Patient Health Questionnaire (PHQ-2) is negative. Patient is on a okay diet. Marital status: Single. Relevant history is negative for passive smoke exposure, alcohol use. He is a former tobacco user. Chronic Conditions *See Chronic Conditions HPI Chronic Conditions Men's prevent jeb visit. Patient Health Questionnaire (PHQ-2) is negative. Patient is on a okay diet. Marital status: Single. Relevant history is negative for passive smoke exposure, alcohol use. He is a former tobacco user. F/u diabetes 29 year old male who presents for followup of diabetes. Patient was started on Ozempic 2 months ago. His Jentadueto was discontinued and metformin was started. He is continuing to take JardianceLast A1C: 9.0 (01/2020)Last eye exam: UTD 05/2019Patient is taking atorvastatin daily f/u chronic conditions 29 year o ld male who presents for followup of chronic conditionsType 2 DMPatient was prescribed Janumet, JardianceFasting blood sugars: 190-200sLast A1C: 9.0 (01/2020)Last eye exam: 05/2019HTNPatient does not take any medicationsHome BP readings: none 4 month office visit dm-- last f atng bs was 120, taking meds .staying activeobesity--weight is doing ok, trying to eat home cooked mealshtn-- not on any meds--couldnt checkThis visit was completed via videochat due to the restrictions of the COVID-19 pandemic. All issues as below were discussed and addressed but physical exam was performed by observation only. If it was felt that the patient should be evaluated in clinic then they were directed there. The patient verbally consented to visit. Telehealth physical Patient presents for annual physicalAcuteNo acute issuesChronicType 2 DMPatient is taking Janumet and JardianceLast A1C: 8.7Eye exam: years ago Foot exam: todayDietician: interested in having a meetingHTNN medications currentlyHome BP readings: noneNo chest pain, headaches, visual changesPatient stopped drinking monster energy drinksMood - good Diet - stopped drinking monster energy drinks, no alcohol, likes chicken and vegetables also likes salads. eats at home mostlyExercise - physical labor at work. goes to gym intermittently. Tobacco/Alcohol/Drugs - former quit 5 years ago, <1ppd x 4 years/never/neverImmunizationsInfluenza: refusesTdap: UTDScreeningsSTI: refuses ER f/u increased BS ran of bs me ds----finally started yesterday, bs better on regular shifthad hyperglycemia- last wednesdayht-- bp a bit high, no symptoms Functional Status Date Functional Assessmen t No Information Instructions Date Instruction Additional Infor charisma Continue to work on low fat diet and increase regular exercise with goal of walking at least 30 minutes 3-5 times per week Related to Hyperlipidemia, unspecified hyperlipidemia type Follow up in 3 month sRecommend getting COVID booster and flu vaccine this fallMonitor BP at home and call us with readings if they are higher than 140/90s Related to Routine medical exam Continue pantoprazole daily Rela mariana to GERD without esophagitis BEGIN MOUNJARO AGAIN We will increase to 5 mg in one monthLet us know how you feel after the third dose of medicationWE WILL REFER YOU TO BROADBAND TECHNICIAN Related to Type 2 diabetes mellitus with hyperglycemia, with long-term current use of insulin Dietary management e ducation, guidance, and counseling Related to Body mass index (BMI) 38.0-38.9, adult recommend annual flu and tdaputd with screeninghealthy diet and exercisefollow up in 6 months Related to Routine medical exam continue medsavoid trigger foods Related to GERD without esophagitis will increase mounja rocontinue healthy diet and exercise Related to Type 2 diabetes mellitus with hyperglycemia, with long-term current use of insulin Medication management Dietary management e ducation, guidance, and counseling Related to Body mass index (BMI) 37.0-37.9, adult continue medsincreas e insulin up to 26uinitscall if bs still not under 130 Related to Type 2 diabetes mellitus with hyperglycemia, with long-term current use of insulin continue pantoprazole Related to GERD without esophagitis Dietary management e ducation, guidance, and counseling Related to Body mass index (BMI) 37.0-37.9, adult Medication management recommend annual flu shotutd with screeninghealthy diet and exercisefollow up in 6 months Related to Routine health maintenance continue medscheck a 1cget annual eye exam Related to Type 2 diabetes mellitus with hyperglycemia, with long-term current use of insulin continue pantroprazole Related t o GERD without esophagitis continue medslow salt diet Relat ed to HTN, goal below 130/80 Dietary management e ducation, guidance, and counseling Related to Body mass index (BMI) 36.0-36.9, adult Medication management will check [id number] ue meds may increase ozempichealthy diet and exercisefollow up in 6 months Related to Type 2 diabetes mellitus with hyperglycemia, with long-term current use of insulin Dietary management e ducation, guidance, and counseling Related to Body mass index (BMI) 39.0-39.9, adult Medication management Encourage healthy diet and exerc ise Related to Morbid (severe) obesity due to excess calories Followup in 4 months We recommend getting the updated bivalent COVID booster this fall. You should wait at least 2 months after your last COVID vaccine to get this updated bivalent vaccineWe recommend getting an influenza vaccine this year Related to Routine health maintenance Continue to work on increasing exercise such as walking. Continue to limit salt intake. Monitor your home blood pressure. Call our office if blood pressure is consistently over 140/90 Related to HTN, goal below 130/80 Continue to work on low fat diet and increase regular exercise with goal of walking at least 30 minutes 3-5 times per week Related to Mixed hyperlipidemia continue pantoprazole daily Rela mariana to GERD without esophagitis We will check labs t odayContinue medicationsGET ANNUAL DIABETIC EYE EXAMS - printed off referral for you to call their office Related to Type 2 diabetes mellitus with hyperglycemia, with long-term current use of insulin continue current dosing Related to nursing home (current) use of insulin Dietary management e ducation, guidance, and counseling Related to Body mass index (BMI) 37.0-37.9, adult We will check labs today Related to Elevated liver enzymes Continue to work on low fat diet and increase regular exercise with goal of walking at least 30 minutes 3-5 times per week Related to Mixed hyperlipidemia Continue to work on increasing exercise such as walking. Continue to limit salt intake. Monitor your home blood pressure. 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 Dietary management e ducation, guidance, and counseling Related to Body mass index (BMI) 37.0-37.9, adult continue pantoprazole Related to GERD without esophagitis healthy diet and exe rcisecontinue ozempic Related to Morbid (severe) obesity due to excess calories continue medsget annual eye exam Related to Type 2 diabetes mellitus with hyperglycemia, with long-term current use of insulin get covid vaccinerec ommend flu shothealthy diet and exercisefollow up in 6 months Related to Routine health maintenance Dietary management e ducation, guidance, and counseling Related to Body mass index (BMI) 39.0-39.9, adult Medication management take pantroprazole d ailyuse pepcid alsoif not better in 1 month call Related to GERD without esophagitis Medication management continue current dosing 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 the increase dose of ozempic noemy l help Related to Morbid (severe) obesity due to excess calories will increase ozempic Related to Type 2 diabetes mellitus with hyperglycemia, with long-term current use of insulin Dietary management e ducation, guidance, and counseling Related to Body mass index (BMI) 40.0-44.9, adult Medication management Continue to work on low fat diet and increase regular exercise with goal of walking at least 30 minutes 3-5 times per week Related to Mixed hyperlipidemia Follow-up with us in 4 monthsTry to get regular exercise and eat a healthy diet Related to Routine health maintenance Continue medications Eat a healthy diet and get regular exerciseBEGIN TAKING LANTUS 15 UNITS NIGHTLYCheck fasting blood sugars every morning. Call us in 2 weeks with these readings. SCHEDULE ANNUAL DIABETIC EYE EXAMStatus: Not meeting treatment plan goals. Goals: Your goal is to be active. Barriers: No barriers to goal achievement have been identified. Related to Type 2 diabetes mellitus without complication, without long-term current use of insulin Continue to work on increasing exercise such as walking. Continue to limit salt intake. Monitor your home blood pressure. Call our office if blood pressure is consistently over 140/90 Related to HTN, goal below 130/80 Dietary management e ducation, guidance, and counseling Related to Body mass index (BMI) 38.0-38.9, adult Continue medications Eat a healthy diet and get regular exerciseWe will check labs todayStatus: Not meeting treatment plan goals. Goals: Your goal is to be active. Barriers: No barriers to goal achievement have been identified. Related to Type 2 diabetes mellitus without complication, without long-term current use of insulin Continue to work on increasing exercise such as walking. Continue to limit salt intake. Monitor your home blood pressure. Call our office if blood pressure is consistently over 140/90 Related to HTN, goal below 130/80 Continue medications Eat a healthy diet and get regular exerciseI will check with your pharmacy to see what medications you are takingStatus: Not meeting treatment plan goals. Goals: Your goal is to be active. Barriers: No barriers to goal achievement have been identified. Related to Type 2 diabetes mellitus without complication, without long-term current use of insulin check bplow salt diet Related to HTN, goal below 130/80 continue medcurteck h [id number] up in 4-6 months Related to Type 2 diabetes mellitus without complication, without long-term current use of insulin keep activereduce portion size R elated to Body mass index (BMI) 39.0-39.9, adult Dietary management e ducation, guidance, and counseling Related to Body mass index (BMI) 39.0-39.9, adult Medication management Encourage healthy diet and exerc ise Related to Morbid (severe) obesity due to excess calories Follow-up with us in 4 monthsWe will call you with lab results Related to Routine health maintenance Continue to work on increasing exercise such as walking. Continue to limit salt intake. Monitor your home blood pressure. Call our office if blood pressure is consistently over 140/90 Related to HTN, goal below 130/80 We will check A1C to day and call you with resultsExercise and eat a healthy dietConsider attending a Taking Care of Diabetes meeting at our officeStatus: Not meeting treatment plan goals. Goals: Your goal is to be active. Barriers: No barriers to goal achievement have been identified. Related to Type 2 diabetes mellitus without complication, without long-term current use of insulin Dietary management e ducation, guidance, and counseling Related to Body mass index (BMI) 40.0-44.9, adult may need to start me d if doesnt go down Related to HTN, goal below 130/80 check kidney functio n and [id number] meds Related to Type 2 diabetes mellitus with hyperglycemia, without long-term current use of insulin continue healthy diet Related to Body mass index (BMI) 37.0-37.9, adult Medication management Assessments Type Assessment Date No Information Patient Care Teams Name Effective Dates (start - stop) Status Members No Information
--- OUTSIDE RECORDS SUMMARY | 2024-08-10 07:02 | XMS_ITS | Referral Summary ---
Author Organization [facility] Building Address [address] [place] [id number] Care Team Providers Care Narcotics Detective Name Role Phone Tania Hale MD Primary Care Provider Encounters Date Type Department Care Team Description 07/10/2024 3:00 PM ATTENDING UROLOGIST Ancillary Procedure [facility] at [address] [id number] Pain 07/10/2024 2:45 PM ATTENDING UROLOGIST Ancillary Procedure [facility] Imaging at [address] [id number] Pain from Last 3 Months Active Problems Problem Noted Date Diagnosed Date Acne 05/29/2011 Asteatosis cutis 05/29/2011 Social History Tobacco Use Types Packs/Day Years Used Date Smoking Tobacco: Never Sex and Gender Information Value Date Recorded Sex Assigned at Not on file Legal Sex Male 3:50 AM ATTENDING UROLOGIST Gender Identity Not on file Sexual Orientation Not on file Plan of Treatment Not on file Procedures Procedure Name Priority Date/Time Associated Diagnosis Comments XR SPINE CERVICAL 6 OR MORE VIEWS Schedule Routine, Read Routine (OP Routine) 07/10/2024 2:29 PM ATTENDING UROLOGIST Pain XR HAND RIGHT 3 OR MORE VIEWS Schedule Routine, Read Routine (OP Routine) 07/10/2024 2:29 PM ATTENDING UROLOGIST Pain from Last 3 Months Results * XR Spine Cervical 6 or More Views (07/10/2024 2:29 PM ATTENDING UROLOGIST) Anatomical Region Laterality Modality Spine N/A Digital Radiogra phy 07/11/2024 1:07 PM ATTENDING UROLOGIST Narrative 07/11/2024 1:13 PM ATTENDING UROLOGIST EXAM DESCRIPTION: XR SPINE CERVICAL 6 OR [...] Luh Stevens M.D. TW T: Report ID: [id number] Reading Location: [place] [address] Procedure Note Luh Stevens MD - 07/11/2024 [...] 1:13 PM - Electronically signed by Luh PHELPS T: Report ID: [id number] Reading Location: [id number] Mario Kendall DC IMG XR PROCEDURES Final Result * XR Hand Right 3 or More Views (07/10/2024 2:29 PM ATTENDING UROLOGIST) Anatomical Region Laterality Modality Upper Extremities, Hand Right Digital Radiography 07/12/2024 8:41 AM ATTENDING UROLOGIST Narrative 07/12/2024 8:59 AM ATTENDING UROLOGIST EXAM DESCRIPTION: XR HAND RIGHT 3 OR [...] by John Paul DAVIS T: Report ID: [id number] Reading Location: [id number] Procedure Note John Paul Art MD - [...] by John Paul DAVIS T: Report ID: [id number] Reading Location: [place] [address] Mario Kendall DC IMG XR PROCEDURES Final Result from Last 3 Months Insurance [facility] [employer] HMO/POS Care Teams Narcotics Detective Relationship Specialty Start Date End Date Tania Hale MD PCP - General Internal Medicine 11/23/18
[2024-08-10 07:12] VITALS: BP 167/97; PULSE 91; RESP 18; O2SAT 97
--- NOTE | 2024-08-10 07:32 | ED.EXTPRO ---
HPI - Extremity Problem General Chief complaint: Extremity Problem,Nontraumatic Stated complaint: L hip pain Time Seen by Provider: 08/10/24 07:14 History of Present Illness HPI Narrative: Patient presents here with pain to his left hip that started about 2 days ago, feels like it shoots from the back of his hip all the way down his leg, does not believe there is any recent trauma, had a similar episode about a year ago that got better after some exercise. Try taking pain medications at home without much improvement. Nearly constant, shooting sharp pain. Related Data Home Medications ?Medication ?Instructions ?Recorded ?Confirmed ?Last Taken ?Type atorvastatin 40 mg tablet 40 mg PO QPM 07/22/20 08/10/24 08/09/24 History empagliflozin 25 mg tablet 25 mg PO 07/22/20 07/22/20 08/09/24 History (Jardiance) metformin 500 mg tablet,extended 500 mg PO QPM 07/22/20 08/10/24 08/09/24 History release 24 hr fenofibrate nanocrystallized 145 145 mg PO DAILY 08/10/24 08/10/24 08/09/24 History mg tablet pantoprazole 40 mg tablet,delayed 40 mg PO Q12H 08/10/24 08/10/24 08/09/24 History release Allergies Allergy/AdvReac Type Severity Reaction Status Date / Time ammonia AdvReac Mild nose bleed Verified 08/10/24 07:19 Review of Systems Review of Systems: All systems reviewed & are unremarkable except as noted in HPI and below Exam Narrative: EXAMINATION OF ORGAN SYSTEMS/BODY AREAS: Constitutional: Vital signs per nursing GENERAL:[No acute distress, non-toxic appearing.] HEAD: Normal with no signs of head trauma. EYES: EOMI, conjunctiva normal ENT: Hearing grossly intact LUNGS: Nonlabored breathing. HEART: [Regular rate and rhythm] ABD: [Soft], [nontender to palpation] EXT: Normal range of motion; tenderness to palpation to R buttock, reproducible SKIN: [No rashes or lesions.] NEURO: [Alert and oriented x 3. No gross focal sensory or strength deficits.] PSYCH: Normal affect Course Vital Signs Vital signs: Vital Signs Pulse Rate 91 08/10/24 07:12 Respiratory Rate 18 08/10/24 07:12 Blood Pressure 167/97 H 08/10/24 07:12 Pulse Oximetry 97 08/10/24 07:12 Oxygen Delivery Room Air 08/10/24 07:12 Pulse Rate 91 08/10/24 07:12 Respiratory Rate 18 08/10/24 07:12 Blood Pressure 167/97 H 08/10/24 07:12 Pulse Oximetry 97 08/10/24 07:12 Oxygen Delivery Room Air 08/10/24 07:12 MDM - Extremity (Nontraumatic) MDM Narrative Medical decision making narrative: 33-year-old male presents here with pain to his left buttock/hip that radiates down to his ankle, he has no other focal numbness or weakness, no recent injury, he is able to ambulate. Does seem consistent with piriformis syndrome/sciatica, will trial steroids, NSAIDs, have him follow-up with ortho with return precautions. Patient agreeable to this plan. Discharge Plan Discharge Clinical Impression: Pain in lower extremity due to sciatica Patient Disposition: Home, Self-Care Condition: Stable Instructions: Piriformis Syndrome (ED) Additional Instructions: Please follow-up with your primary care doctor or with the orthopedic surgeon, continue with ibuprofen as prescribed, and feel free to return to the emergency room if your symptoms get worse. Patient Language: Jordanian Prescriptions: New prednisone 20 mg tablet 40 mg PO DAILY 4 Days Qty: 8 0RF No Action pantoprazole 40 mg tablet,delayed release (DR/EC) 40 mg PO Q12H fenofibrate nanocrystallized 145 mg tablet 145 mg PO DAILY atorvastatin 40 mg tablet 40 mg PO QPM metformin 500 mg tablet extended release 24 hr 500 mg PO QPM Jardiance 25 mg tablet 25 mg PO clindamycin HCl 300 mg capsule 300 mg PO Q6H 10 Days Qty: 40 0RF hydrocodone-acetaminophen [Anderson] 5-325 mg tablet 1 tablet PO Q6H PRN (Reason: pain) 3 Days Qty: 12 0RF Follow-up/Referrals: Darinel Petty MD [Physician] - 2 Days Jordanian,Cipriano Almanzar MD [Primary Care Provider] -
[2024-08-10] MEDS: KETOROLAC 30 MG/ML VIAL (*BKC) IM (07:37)
[2024-08-10] MEDS: predniSONE 20 MG TABLET 40 MG PO (07:43)
[2024-08-10 10:18] VITALS: BP 137/92; PULSE 81; RESP 18; TEMP 36.4; O2SAT 98
== END 2024-08-10 10:25 | disposition home or self-care (01) ==
LOC: ANHED 07:33
PROVIDERS: Emergency Provider Emergency Medicine; PCP Internal Medicine
DX: M54.32 Sciatica, left side (principal)
CPT/HCPCS: 73502; 96372; 99283; J1885; J7512